=== PATIENT | male | born 1940 | race Caucasian/White ===

== ENCOUNTER → 2018-04-15 | Outpatient (CLI) | payer MEDICARE, BC ==
[2017-04-21 09:06] VITALS: BMI 26.4
[~2018-04-15] MED LIST: ACET-3017 PO; BUDE3CAP6 PO; CELE-1 PO; CLAR-1 PO; FAMO-67 PO; INSU100C10 SQ; INSU100I30 SUBQ; LANI SUBQ; LOSA25TA50 PO; LOSA50TA72 PO; MESA0.374 PO; METR-160 PO; NOVOLOG SUBQ; ONDA4TAB PO; PANT40TA65 PO; PRE5 PO; PRED-1 PO; PRED-416 PO; PRED20TA6 PO
--- NOTE | 2018-04-15 15:37 | RADIOLOGY IMAGING REPORT ---
FACILITY: [facility] PATIENT NAME: Montana Carl : 1940 MR: [id number] V: [id number] EXAM DATE: [id number] ORDERING PHYSICIAN: LUIZ BAILEY TECHNOLOGIST: Location: [facility] - [place] Patient: Montana Carl : 1940 Visit/Account:[id number] Date of Sevice: 04/15/2018 Exam type: PELVIS History: Bilateral hip pain Comparison: KUB May 05, 2017. Findings: No significant arthritic change identified at the hip joints. There is no evidence of acute fracture s involving the pelvis. No lytic or blastic bone lesions are seen. Calcified lupus are noted in the pelvis. There are moderate spondylotic changes in the visualized lower lumbar spine IMPRESSION: 1. Moderate spondylotic changes lower lumbar spine Report Dictated By: Andreia Monroe MD at 04/15/2018 3:31 PM Report E-Signed By: Andreia Monroe MD at 04/15/2018 3:34 PM WSN:[email or web address]
== END ==
LOC: RAD 15:02
PROVIDERS: ATTEND Family Medicine
DX: M47.896 Other spondylosis, lumbar region (principal)
CPT/HCPCS: 72170

== ENCOUNTER → 2018-06-14 | Outpatient (CLI) | payer MEDICARE, BC ==
[2017-04-21 09:06] VITALS: BMI 26.4
[~2018-06-14] MED LIST changes: +ADAL40PE4 SQ; +INSU100I10 SQ; +LOSA100T69 PO; -LOSA25TA50 PO; +LOSA25TA52 PO; -LOSA50TA72 PO; +LOSA50TA74 PO
== END ==
LOC: LAB 12:16
PROVIDERS: ATTEND Family Medicine
DX: I10 Essential (primary) hypertension (principal)
CPT/HCPCS: 36415; 82310; 82374; 82435; 82565; 82947; 84132; 84295; 84520

== ENCOUNTER → 2019-01-06 | Outpatient (CLI) | payer MEDICARE, BC ==
[2017-04-21 09:06] VITALS: BMI 26.4
[~2019-01-06] MED LIST changes: -LOSA100T69 PO; +LOSA100T75 PO; -LOSA25TA52 PO; +LOSA25TA57 PO; -LOSA50TA74 PO; +LOSA50TA80 PO; -METR-160 PO; +METR500T15 PO
[2019-01-06 14:54] LABS: PLATELET COUNT, AUTOMATED 350 K/uL (150-450)
== END ==
LOC: LAB 14:28
PROVIDERS: ATTEND Internal Medicine Gastroenterology
DX: K51.20 Ulcerative (chronic) proctitis without complications (principal); R19.7 Diarrhea, unspecified; K92.1 Melena
CPT/HCPCS: 36415; 82040; 82247; 82310; 82374; 82435; 82565; 82947; 84075; 84132; 84155; 84295; 84450; 84460; 84520; 85025; 87324; 87449

== ENCOUNTER → 2019-01-17 | Outpatient (CLI) | payer MEDICARE, BC ==
[2017-04-21 09:06] VITALS: BMI 26.4
== END ==
LOC: LAB 09:36
PROVIDERS: ATTEND Internal Medicine Gastroenterology
DX: K51.30 Ulcerative (chronic) rectosigmoiditis without complications (principal); R19.7 Diarrhea, unspecified
CPT/HCPCS: 36415; 83993; 84443

== ENCOUNTER → 2019-01-27 | Outpatient (CLI) | payer MEDICARE, BC ==
[2017-04-21 09:06] VITALS: BMI 26.4
[~2019-01-27] MED LIST changes: +ACET650T40 PO; +INSU100I30 SQ; +TRIA15CR40 TP
--- NOTE | 2019-01-27 15:27 | RADIOLOGY IMAGING REPORT ---
FACILITY: [facility] PATIENT NAME: Montana Carl : 1940 MR: [id number] V: [id number] EXAM DATE: ORDERING PHYSICIAN: STACEY HERNANDEZ TECHNOLOGIST: Location: [facility] Patient: Montana Carl : 1940 Visit/Account:[id number] Date of Sevice: 01/27/2019 MRI right shoulder Indication: Right shoulder pain. Osteoarthritis. Comparison: None available. Technique: Multiplanar multisequence MR images were obtained through the right shoulder. Findings: Rotator cuff: High-grade undersurface tearing distal supraspinatus. Minimal undersurface tearing distal infraspinatus fibers. Teres minor is intact, and unremarkable. There is tendinopathy and mild partial tearing the superior fibers of the subscapularis. Biceps tendon: Moderate tendinopathy intra-articular portion biceps tendon. Mild medial subluxation biceps tendon from the superior bicipital groove. AC joint and acromion: There are no significant acromioclavicular degenerative changes. Labrum and capsular ligaments: Dear circumferential complex degenerative labral tearing noted with slight posterior displacement of the complex irregular tearing of the posterior labrum with no significant para labral cyst. Capsular ligaments are intact with no evidence of focal abnormality. Bones and cartilage: No acute fracture-dislocation. High-grade chondral loss of the glenohumeral joint cartilage with subc hondral cystic changes noted and minimal subchondral sclerosis as well. . Scratch that no acute osseous abnormality. Effusion, bursitis: Mild to moderate sized likely reactive effusion glenohumeral joint. Moderate amount of fluid seen within subacromial/subdeltoid bursa. IMPRESSION: 1. High-grade tearing distal supraspinatus. 2. Moderate subacromial/subcutaneous bursitis. 3. Moderate to severe osteoarthritic changes glenohumeral joint with near circumferential degenerativ e labral tearing. Report Dictated By: Mando Puentes MD at 01/27/2019 3:18 PM Report E-Signed By: Mando Puentes MD at 01/27/2019 3:22 PM WSN:[id number]
== END ==
LOC: MRI 01:29
PROVIDERS: ATTEND Family Medicine Sports Medicine
DX: M19.011 Primary osteoarthritis, right shoulder (principal); S46.811A Strain of other muscles, fascia and tendons at shoulder and upper arm level, right arm, initial encounter; M75.51 Bursitis of right shoulder

== ENCOUNTER → 2019-03-04 | Outpatient (CLI) | payer MEDICARE, BC ==
[2017-04-21 09:06] VITALS: BMI 26.4
[~2019-03-04] MED LIST changes: +VEDO300V
[2019-03-04 17:45] LABS: PLATELET COUNT, AUTOMATED 414 K/uL (150-450)
== END ==
LOC: LAB 16:39
PROVIDERS: ATTEND Internal Medicine Gastroenterology
DX: K51.30 Ulcerative (chronic) rectosigmoiditis without complications (principal); K52.1 Toxic gastroenteritis and colitis; R68.83 Chills (without fever); R10.9 Unspecified abdominal pain
CPT/HCPCS: 36415; 82040; 82247; 82248; 82310; 82374; 82435; 82565; 82947; 83993; 84075; 84132; 84155; 84295; 84450; 84460; 84520; 85025; 87324; 87449

== ENCOUNTER → 2019-03-05 | Outpatient (REF) | payer MEDICARE, BC ==
[2017-04-21 09:06] VITALS: BMI 26.4
== END ==
LOC: ZZSENDIN 12:18
PROVIDERS: ATTEND Internal Medicine Gastroenterology
DX: K51.30 Ulcerative (chronic) rectosigmoiditis without complications (principal); K52.1 Toxic gastroenteritis and colitis; R68.83 Chills (without fever); R10.9 Unspecified abdominal pain

== ENCOUNTER 2019-03-07 08:48 | Emergency (ER) | payer MEDICARE, BC ==
[2017-04-21 09:06] VITALS: Wt 80.7 kg
[~2019-03-07 08:48] MED LIST changes: -VEDO300V
--- NOTE | 2019-03-07 08:59 | ER Report ---
History and Physical Time Seen By MD: 08:56 HPI/ROS CHIEF COMPLAINT: Abdominal pain jaundice HISTORY OF PRESENT ILLNESS: 79-year-old male history of colitis on IV medication for colitis last month to month and a half he's been having episodic abdominal discomfort Kirill localized to the epigastrium no radiation comes and goes treating it as potentially a gastritis patient has worsening pain when he lays flat on his back a lot of burping a lot a reflux however in the last couple days he noticed some anicteric sclera and some jaundice unclear one of the side effects reportedly from the medication is being infused his liver issues liver dysfunction patient has no history of liver issues no history of hepatitis or IV drug use. Patient denies chest pain at this time but the pain is localized to the epigastrium. Patient denies nausea vomiting diarrhea fever chills REVIEW OF SYSTEMS: Respiratory: No cough, no dyspnea. Cardiovascular: No chest pain, no palpitations. Gastrointestinal: Epigastric abdominal pain with jaundice Musculoskeletal: No back pain. Remainder of the 14 system rev: Yes Allergies: Coded Allergies: mesalamine (Verified Allergy, Intermediate, cramps, 05/28/17) Sulfa (Sulfonamide Antibiotics) (Unverified Allergy, Unknown, 03/07/19) glipizide (Unverified Allergy, Unknown, Boils, 06/14/18) Home Meds Reported Medications Vedolizumab (Entyvio) 300 Mg Vial 03/07/19 Acetaminophen (ACETAMINOPHEN) 650 Mg Tablet.er, 1 TAB PO BID, TAB 01/24/19 Losartan Potassium (LOSARTAN POTASSIUM) 100 Mg Tablet, 0.5 TAB PO QDAY 06/14/18 Discontinued Reported Medications Triamcinolone Acetonide 0.1% Cr 15 Gm Tube (TRIAMCINOLONE ACETONIDE 0.1% CREAM) 15 Gm Cream..g., 1 ARI TP BID PRN for RASH, TUBE 01/25/19 Insulin Glargine 100 Un/Ml Pen (LANTUS SOLOSTAR PEN) 100 Unit/1 Ml Insuln.pen, 10 UNIT SQ DAILY, PEN 01/24/19 Discontinued Scripts Adalimumab (HUMIRA) 40 Mg/0.8 Ml Pen.ij.kit, 40 MG SQ QDAY for 90 Days, #2 BOX Prov:LIDYA BLACK MD 06/14/18 Reviewed Nurses Notes: Yes Old Medical Records Reviewed: Yes Hx Smoking: Yes (50 YEARS AGO) Smoking Status: Never Smoker, Former Smoker Hx Substance Use Disorder: No Hx Alcohol Use: No Constitutional Vital Sign - Last 24 Hours 03/07/19 03/07/19 03/07/19 03/07/19 08:55 09:00 09:30 10:00 Temp 97.8 Pulse 53 50 46 48 Resp 16 14 17 B/P (MAP) 127/66 114/91 (99) 116/61 (79) Pulse Ox 91 90 93 95 03/07/19 03/07/19 03/07/19 03/07/19 10:30 11:00 11:30 12:00 Pulse 47 47 48 47 Resp 10 19 11 B/P (MAP) 131/65 (87) 120/51 (74) 136/63 (87) 136/68 (90) Pulse Ox 96 96 94 95 03/07/19 12:30 Pulse 47 Resp 13 B/P (MAP) 127/66 (86) Pulse Ox 95 Physical Exam General Appearance: The patient is alert, has no immediate need for airway protection and no current signs of toxicity. [ ] Eyes: Pupils equal and round no injection. Icteric sclera Respiratory: Chest is non tender, lungs are clear to auscultation. Cardiac: regular rate and rhythm [ ] Gastrointestinal: Mild tenderness to palpation epigastrium otherwise unremarkable Musculoskeletal: Neck: Neck is supple and non tender. Extremities have full range of motion and are non tender. Skin: Yellow colored hue to the skin consistent with jaundice and icteric sclera also noticed [ ] DIFFERENTIAL DIAGNOSIS: After history and physical exam differential diagnosis was considered for liver disorder liver dysfunction pancreatitis gallstone pancreatitis colitis allergic drug reaction drug reaction causing liver dysfunction Medical Decision Making Data Points Result Diagram: 03/07/1989903/07/19 0900 Laboratory Hematology Test 03/07/19 09:00 03/07/19 09:42 Red Blood Count 4.35 M/uL (4.00-5.60) Mean Corpuscular Volume 92.2 fL (80.0-96.0) Mean Corpuscular Hemoglobin 30.8 pg (26.0-33.0) Mean Corpuscular Hemoglobin Concent 33.4 g/dL (32.0-36.0) Red Cell Distribution Width 13.7 % (11.5-14.5) Mean Platelet Volume 8.1 fL (7.2-11.1) Neutrophils (%) (Auto) 68.1 % (39.4-72.5) Lymphocytes (%) (Auto) 13.8 % (17.6-49.6) Monocytes (%) (Auto) 10.9 % (4.1-12.4) Eosinophils (%) (Auto) 5.8 % (0.4-6.7) Basophils (%) (Auto) 1.4 % (0.3-1.4) Nucleated RBC Relative Count (auto) 0.0 /100WBC Neutrophils # (Auto) 5.1 K/uL (2.0-7.4) Lymphocytes # (Auto) 1.0 K/uL (1.3-3.6) Monocytes # (Auto) 0.8 K/uL (0.3-1.0) Eosinophils # (Auto) 0.4 K/uL (0.0-0.5) Basophils # (Auto) 0.1 K/uL (0.0-0.1) Nucleated RBC Absolute Count (auto) 0.00 K/uL Prothrombin Time 13.0 seconds (12.0-14.4) Prothromb Time International Ratio 0.98 Activated Partial Thromboplast Time 32 seconds (23-35) D-Dimer Quantitative (PE/DVT) 0.79 ug/ml (0-0.50) Sodium Level 139 mmol/L (137-145) Potassium Level 3.9 mmol/L (3.5-5.0) Chloride Level 104 mmol/L (98-107) Carbon Dioxide Level 24 mmol/L (22-30) Blood Urea Nitrogen 19 mg/dl (9-21) Creatinine 1.70 mg/dl (0.66-1.25) Glomerular Filtration Rate Calc 39.3 Random Glucose 120 mg/dl (75-110) Calcium Level 9.5 mg/dl (8.4-10.2) Total Bilirubin 5.5 mg/dl (0.2-1.3) Aspartate Amino Transf (AST/SGOT) 202 U/L (0-35) Alanine Aminotransferase (ALT/SGPT) 376 U/L (0-56) Alkaline Phosphatase 396 U/L (0-126) Troponin I < 0.012 ng/ml Total Protein 6.8 g/dl (6.3-8.2) Albumin 3.7 g/dl (3.5-5.0) Lipase 94 U/L (23-300) Serum Alcohol < 10 mg/dl Urine Color Paty Urine Clarity Clear Urine pH 5.0 pH (4.8-9.5) Urine Specific Lee 1.023 Urine Protein Negative mg/dL (NEGATIVE) Urine Glucose (UA) Negative mg/dL (NEGATIVE) Urine Ketones 20 mg/dL (NEGATIVE) Urine Blood Negative (NEGATIVE) Urine Nitrite Negative (NEGATIVE) Urine Bilirubin Moderate (NEGATIVE) Urine Urobilinogen 4.0 mg/dL (0.2-1.9) Urine Leukocyte Esterase Negative (NEGATIVE) Urine RBC 1 /HPF (0-2/HPF) Urine WBC 8 /HPF (0-5/HPF) Urine Squamous Epithelial Cells None /LPF (</=FEW) Urine Bacteria Negative /HPF (NONE-FEW) Urine Hyaline Casts Few /LPF (NONE-FEW) Urine Mucus Few /HPF (NONE-FEW) Chemistry Test 03/07/19 09:00 03/07/19 09:42 White Blood Count 7.5 k/uL (4.5-11.0) Red Blood Count 4.35 M/uL (4.00-5.60) Hemoglobin 13.4 g/dL (14.0-18.0) Hematocrit 40.1 % (42.0-52.0) Mean Corpuscular Volume 92.2 fL (80.0-96.0) Mean Corpuscular Hemoglobin 30.8 pg (26.0-33.0) Mean Corpuscular Hemoglobin Concent 33.4 g/dL (32.0-36.0) Red Cell Distribution Width 13.7 % (11.5-14.5) Platelet Count 395 K/uL (150-450) Mean Platelet Volume 8.1 fL (7.2-11.1) Neutrophils (%) (Auto) 68.1 % (39.4-72.5) Lymphocytes (%) (Auto) 13.8 % (17.6-49.6) Monocytes (%) (Auto) 10.9 % (4.1-12.4) Eosinophils (%) (Auto) 5.8 % (0.4-6.7) Basophils (%) (Auto) 1.4 % (0.3-1.4) Nucleated RBC Relative Count (auto) 0.0 /100WBC Neutrophils # (Auto) 5.1 K/uL (2.0-7.4) Lymphocytes # (Auto) 1.0 K/uL (1.3-3.6) Monocytes # (Auto) 0.8 K/uL (0.3-1.0) Eosinophils # (Auto) 0.4 K/uL (0.0-0.5) Basophils # (Auto) 0.1 K/uL (0.0-0.1) Nucleated RBC Absolute Count (auto) 0.00 K/uL Prothrombin Time 13.0 seconds (12.0-14.4) Prothromb Time International Ratio 0.98 Activated Partial Thromboplast Time 32 seconds (23-35) D-Dimer Quantitative (PE/DVT) 0.79 ug/ml (0-0.50) Glomerular Filtration Rate Calc 39.3 Calcium Level 9.5 mg/dl (8.4-10.2) Total Bilirubin 5.5 mg/dl (0.2-1.3) Aspartate Amino Transf (AST/SGOT) 202 U/L (0-35) Alanine Aminotransferase (ALT/SGPT) 376 U/L (0-56) Alkaline Phosphatase 396 U/L (0-126) Troponin I < 0.012 ng/ml Total Protein 6.8 g/dl (6.3-8.2) Albumin 3.7 g/dl (3.5-5.0) Lipase 94 U/L (23-300) Serum Alcohol < 10 mg/dl Urine Color Paty Urine Clarity Clear Urine pH 5.0 pH (4.8-9.5) Urine Specific Lee 1.023 Urine Protein Negative mg/dL (NEGATIVE) Urine Glucose (UA) Negative mg/dL (NEGATIVE) Urine Ketones 20 mg/dL (NEGATIVE) Urine Blood Negative (NEGATIVE) Urine Nitrite Negative (NEGATIVE) Urine Bilirubin Moderate (NEGATIVE) Urine Urobilinogen 4.0 mg/dL (0.2-1.9) Urine Leukocyte Esterase Negative (NEGATIVE) Urine RBC 1 /HPF (0-2/HPF) Urine WBC 8 /HPF (0-5/HPF) Urine Squamous Epithelial Cells None /LPF (</=FEW) Urine Bacteria Negative /HPF (NONE-FEW) Urine Hyaline Casts Few /LPF (NONE-FEW) Urine Mucus Few /HPF (NONE-FEW) Coagulation Test 03/07/19 09:00 Prothrombin Time 13.0 seconds Prothromb Time International Ratio 0.98 Activated Partial Thromboplast Time 32 seconds D-Dimer Quantitative (PE/DVT) 0.79 ug/ml Toxicology Test 03/07/19 09:00 Serum Alcohol < 10 mg/dl Urinalysis Test 03/07/19 09:42 Urine Color Paty Urine Clarity Clear Urine pH 5.0 pH (4.8-9.5) Urine Specific Lee 1.023 Urine Protein Negative mg/dL (NEGATIVE) Urine Glucose (UA) Negative mg/dL (NEGATIVE) Urine Ketones 20 mg/dL (NEGATIVE) Urine Blood Negative (NEGATIVE) Urine Nitrite Negative (NEGATIVE) Urine Bilirubin Moderate (NEGATIVE) Urine Urobilinogen 4.0 mg/dL (0.2-1.9) Urine Leukocyte Esterase Negative (NEGATIVE) Urine RBC 1 /HPF (0-2/HPF) Urine WBC 8 /HPF (0-5/HPF) Urine Squamous Epithelial Cells None /LPF (</=FEW) Urine Bacteria Negative /HPF (NONE-FEW) Urine Hyaline Casts Few /LPF (NONE-FEW) Urine Mucus Few /HPF (NONE-FEW) ED Course/Re-evaluation ED Course ED course 79-year-old male comes emergency room today obvious jaundice icteric sclera bilirubin of 5.5 elevated LFTs and the 2 and 300 range initial CAT scan showed dilation of the common bile duct and thickening of the gallbladder concerning for cholecystitis follow-up ultrasound shows a large amount of sludge talked to general surgery is recommending ERCP and transfer to higher level care for definitive treatment and follow-up patient be transferred to [facility] diagnosis: The Decision to Disposition Date: Mar 07, 2019 Decision to Disposition Time: 12:57 Depart Departure Latest Vital Signs Vital Signs Date Time Temp Pulse Resp B/P (MAP) Pulse Ox O2 Delivery O2 Flow Rate FiO2 03/07/19 12:30 47 13 127/66 (86) 95 03/07/19 08:55 97.8 Impression: Primary Impression: Cholecystitis Condition: Improved Disposition: [facility] Referrals: LIDYA BLACK MD (PCP) KYLE SUAREZ MD Mar 07, 2019 08:59
[2019-03-07] MEDS ORDERED: ONDANSETRON 4 MG/2 ML VIAL IVP ONE (09:00)
[2019-03-07] MEDS ORDERED: VEDO300V (09:01)
[2019-03-07] MEDS ORDERED: IOPAMIDOL 76% 100 ML INFUS BTL 0 ML ONE (09:08)
[2019-03-07 09:11] LABS: PLATELET COUNT, AUTOMATED 395 K/uL (150-450)
--- NOTE | 2019-03-07 09:20 | EKG ---
FACILITY: [facility] PATIENT NAME: SUKHDEV MIR : [id number] MR: [id number] V: [id number] EXAM DATE: ORDERING PHYSICIAN: KYLE SUAREZ TECHNOLOGIST: BRIAN Test Reason : CP Blood Pressure : / mmHG Vent. Rate : 053 BPM Atrial Rate : 053 BPM P-R Int : 166 ms QRS Dur : 088 ms QT Int : 440 ms P-R-T Axes : 023 -28 018 degrees QTc Int : 412 ms Sinus bradycardia Possible left atrial enlargement Left axis No acute appearing findings Confirmed by DELICIA TEMPLETON ([id number]) on 03/07/2019 4:12:46 PM Referred By: DANIELA Confirmed By:DELICIA TEMPLETON
[2019-03-07 09:27] LABS: INR 0.98
[2019-03-07] MEDS ORDERED: NS(*) 0.9% 1000 ML BAG 1,000 ML IV ONE (09:35)
--- NOTE | 2019-03-07 10:05 | RADIOLOGY IMAGING REPORT ---
FACILITY: [facility] PATIENT NAME: Montana Carl : 1940 MR: [id number] V: [id number] EXAM DATE: ORDERING PHYSICIAN: KYLE SUAREZ TECHNOLOGIST: Location: [facility] Patient: Montana Carl : 1940 Visit/Account:[id number] Date of Sevice: 03/07/2019 Technique: CHEST PA LAT HISTORY: Ulcerative colitis Comparison studies: April 21, 2017 FINDINGS: No acute airspace consolidation. No pleural effusion. Minimal left basilar atelectasis is present. There is pulmonary hyperexpansion. Cardiomediastinal silhouette is unchanged. IMPRESSION: 1. No acute cardiopulmonary process. Report Dictated By: Lamont Rios DO at 03/07/2019 9:57 AM Report E-Signed By: Lamont Rios DO at 03/07/2019 9:59 AM WSN:[id number]
[2019-03-07] MEDS ORDERED: NS(*) 0.9% 50 ML BAG 0 ML ONE (10:30)
[2019-03-07] MEDS ORDERED: IOPAMIDOL 76% 100 ML INFUS BTL 100 ML ONE (10:30)
--- NOTE | 2019-03-07 10:35 | RADIOLOGY IMAGING REPORT ---
FACILITY: [facility] [place] PATIENT NAME: Montana Carl : 1940 MR: [id number] V: [id number] EXAM DATE: ORDERING PHYSICIAN: KYLE SUAREZ TECHNOLOGIST: Location: [facility] [place] Patient: Montana Carl : 1940 Visit/Account:[id number] Date of Sevice: 03/07/2019 EXAMINATION: CT Abdomen and Pelvis With Contrast 03/07/2019 8:56 AM HISTORY: pain TECHNIQUE: Spiral scan was through the abdomen and pelvis during injection of nonionic iodinated in travenous contrast. Contrast: 75 mL of IV Isovue 370. One of the following dose optimization techniques was utilized in the performance of this exam: Autom ated exposure control; adjustment of the mA and/or kV according to the patient's size; or use of an i terative reconstruction technique. Specific details can be referenced in the facility's radiology C T exam operational policy. COMPARISON STUDIES: 05/28/2017. FINDINGS: Liver / biliary: Intra and extrahepatic biliary dilatation is new with the CBD measuring over 1 cm in the pancreatic head. This tapers fairly smoothly towards the ampulla. No cholelithiasis defined by CT. There is thickening of the gallbladder wall particularly towards the fundus with minimal fluid between the liver and the gallbladder. No focal liver lesion. Pancreas: Pancreas enhances well. No peripancreatic inflammation. Duct is not dilated. Spleen: negative Adrenal glands: negative Kidneys / retroperitoneum: Symmetric and normal enhancement. No stone or obstruction. Small bilater al benign-appearing renal cortical cysts. Pelvic structures: Prostate is prominent. Bladder contours are unremarkable. Bowel / peritoneum / mesenteries: Stomach and small bowel are unremarkable in appearance. Mildly thi ckened appearance of the lower descending colon through the sigmoid although this is less evident on the previous. The transverse colon and splenic flexure do not have a thickened and inflamed appearan ce of the prior. Diverticulosis of the distal colon without acute focal diverticular inflammation. No perforation, fistula, or abscess. Vessels: Atherosclerosis. Incidental circumaortic left renal vein with a small retroaortic component . Musculoskeletal / Body wall: Degenerative changes in the spine. Small bilateral fatty inguinal herni as. Lymph node assessment: negative Lower chest: Mild atelectasis or scarring in the bases. Of note with respect to the clinical concern for potential PE, basilar pulmonary arteries appear to enhance well without visible thrombus althoug h this was not an optimized CTA PE technique. IMPRESSION: 1. Biliary dilatation which is new and abnormal appearance of the gallbladder concerning for cholecy stitis. No defined obstructing cholelithiasis. 2. Mildly thickened distal colon less so than in 2017. This may be chronic changes related to the p atient's history of ulcerative colitis although acute exacerbation would be possible. I called report to KYLE SUAREZ at 03/07/2019 10:22 AM. There was a pending order for CTA for PE b ut given the potential biliary findings to account for pain, gallbladder ultrasound will be performed and the CTA for PE may be deferred. Report Dictated By: Adair Polk MD at 03/07/2019 10:13 AM Report E-Signed By: Adair Polk MD at 03/07/2019 10:31 AM WSN:[email or web address]
--- NOTE | 2019-03-07 11:52 | RADIOLOGY IMAGING REPORT ---
FACILITY: [facility] [place] PATIENT NAME: Montana Carl : 1940 MR: [id number] V: [id number] EXAM DATE: ORDERING PHYSICIAN: KYLE SUAREZ TECHNOLOGIST: Location: [facility] Patient: Montana Carl : 1940 Visit/Account:[id number] Date of Sevice: 03/07/2019 GALLBLADDER COMPARISON: CT abdomen with IV contrast earlier today. HISTORY: pain TECHNIQUE: Alejo scale ultrasound of the right upper quadrant was performed. FINDINGS: LIVER: Normal size, 15.9 cm craniocaudally. Normal morphology. Normal homogeneous echotexture.Nor mal homogeneous echotexture. No appreciable masses. There is hepatopedal flow in the main portal ve in as expected. GALLBLADDER: Normal size. There are no shadowing gallstones however there is a nonshadowing echogeni c filling defect measuring about 1.3 x 3.5 cm is most consistent with sludge ball. Additional nonshad owing echogenic foci along the wall of the gallbladder system with polyps, largest measuring 2 x 5 mm on image 33. There is no wall thickening or pericholecystic fluid. The sonographic Beltrán's sign was reportedly negative. BILE DUCTS: No intrahepatic or extrahepatic bile duct dilatation by ultrasound although the common d uct and intrahepatic bile ducts were clearly dilated on a study performed about one hour prior to thi s study. Common bile duct measures 2 millimeters by ultrasound but it measured about [address] PANCREAS: Normal ultrasound appearance. RIGHT KIDNEY: Normal appearance, 10.2 cm bipolar length with normal cortical medullary differentiati on. No shadowing stone, perinephric fluid or mass. OTHER: Negative. IMPRESSION: 1. 3.5 cm sludge ball and small gallbladder polyps (largest polyp measuring 2 x 5 mm). Otherwise nor mal appearance of the gallbladder without sonographic evidence of cholecystitis. Beltrán's sign was ne gative. 2. Although there is no appreciable bile duct dilatation by ultrasound, there was clearly mild intra and extrahepatic bile duct dilatation on a CT performed earlier this morning. Report Dictated By: Rayo Duong at 03/07/2019 11:38 AM Report E-Signed By: Rayo Duong at 03/07/2019 11:47 AM WSN:[id number]
--- NOTE | 2019-03-07 12:12 | EKG ---
FACILITY: [facility] [place] PATIENT NAME: SUKHDEV MIR : [id number] MR: [id number] V: [id number] EXAM DATE: ORDERING PHYSICIAN: KYLE SUAREZ TECHNOLOGIST: SUKHWINDER Valdez Reason : CP Blood Pressure : / mmHG Vent. Rate : 047 BPM Atrial Rate : 047 BPM P-R Int : 170 ms QRS Dur : 090 ms QT Int : 466 ms P-R-T Axes : 031 -24 011 degrees QTc Int : 412 ms Sinus bradycardia with PAC Left axis Abnormal ECG When compared with ECG of 07-MAR-2019 08:52, No significant change was found Confirmed by DELICIA TEMPLETON ([id number]) on 03/07/2019 4:15:58 PM Referred By: DANIELA Confirmed By:DELICIA TEMPLETON
[2019-03-07] MEDS ORDERED: PIPERACILLIN/TAZO*3.375GM VIAL 3.375 GM in NS(*) 0.9% 100 ML MINI-BAG 100 ML IVPB ONE (12:50)
[2019-03-07] MEDS ORDERED: MORPHINE 4 MG/ML SDV IVP ONE (13:20)
[2019-03-07 14:00] VITALS: BP 129/60
== END 2019-03-07 15:30 | disposition short-term general hospital (02) ==
LOC: ER 09:04
DX: K81.9 Cholecystitis, unspecified (principal)
CPT/HCPCS: 71046; 74177; 76705; 81001; 83690; 84484; 85025; 85379; 85610; 85730; 93005; 96361; 96365; 96375; 99285; G0480; J2270; J2405; J2543; J7030; Q9967; 80320; 82040; 82247; 82310; 82374; 82435; 82565; 82947; 84075; 84132; 84155; 84295; 84450; 84460; 84520; 99284; J7050

== ENCOUNTER → 2019-03-07 | Outpatient (CLI) | payer MEDICARE, BC ==
[2017-04-21 09:06] VITALS: BMI 26.4
== END ==
LOC: AMB 15:32
PROVIDERS: ATTEND Nurse Practitioner
DX: R10.10 Upper abdominal pain, unspecified (principal)
CPT/HCPCS: A0425; A0426

== ENCOUNTER → 2019-03-16 | Outpatient (CLI) | payer MEDICARE, BC ==
[2017-04-21 09:06] VITALS: BMI 26.4
[~2019-03-16] MED LIST changes: +VEDO300V
[2019-03-16 09:09] LABS: PLATELET COUNT, AUTOMATED 349 K/uL (150-450)
== END ==
LOC: LAB 08:50
PROVIDERS: ATTEND Internal Medicine Gastroenterology
DX: K51.30 Ulcerative (chronic) rectosigmoiditis without complications (principal); R89.8 Other abnormal findings in specimens from other organs, systems and tissues
CPT/HCPCS: 36415; 82040; 82247; 82248; 82310; 82374; 82435; 82565; 82947; 83690; 84075; 84132; 84155; 84295; 84450; 84460; 84520; 85025

== ENCOUNTER 2019-03-17 12:56 | Outpatient (RCR) | payer MEDICARE, BC ==
[2017-04-21 09:06] VITALS: Wt 86.5 kg
[2019-02-02 13:04] VITALS: BP 130/86
[2019-02-02] MEDS: LIDOCAINE/SOD BICARB 8.4% SYR ID PRN (13:13)
[2019-02-02] MEDS: NS(*) 0.9% 100 ML BAG 100 ML IVPB PRN (13:13)
[2019-02-02 13:18] LABS: PLATELET COUNT, AUTOMATED 372 K/uL (150-450)
[2019-02-02] MEDS: ACETAMINOPHEN 325 MG TAB PO PRN (13:52)
[2019-02-02] MEDS: diphenhydrAMINE 25 MG CAP PO PRN (13:52)
[2019-02-02 15:08] VITALS: BP 135/77
[2019-02-16] MEDS: diphenhydrAMINE 25 MG CAP PO PRN (09:21)
[2019-02-16] MEDS: LIDOCAINE/SOD BICARB 8.4% SYR ID PRN (09:21)
[2019-02-16] MEDS: NS(*) 0.9% 100 ML BAG 100 ML IVPB PRN (09:25)
[2019-02-16 09:27] LABS: PLATELET COUNT, AUTOMATED 399 K/uL (150-450)
[2019-02-16 09:49] VITALS: BP 107/67
[2019-02-16 10:26] VITALS: BP 112/71
[~2019-03-17 12:56] MED LIST changes: +DEXTROSE 5%(*) 100 ML BAG 100 ML IVPB PRN; +VEDOLIZUMAB 300 MG VIAL 300 MG in NS(*) 0.9% 250 ML BAG 250 ML IVPB ONE
[2019-03-17 13:11] VITALS: BP 151/75
[2019-03-17] MEDS: ACETAMINOPHEN 325 MG TAB PO PRN (13:24)
[2019-03-17] MEDS: diphenhydrAMINE 25 MG CAP PO PRN (13:24)
[2019-03-17] MEDS: LIDOCAINE/SOD BICARB 8.4% SYR ID PRN (13:25)
[2019-03-17] MEDS: NS(*) 0.9% 100 ML BAG 100 ML IVPB PRN (13:45)
[2019-03-17] MEDS ORDERED: VEDOLIZUMAB 300 MG VIAL 300 MG in NS(*) 0.9% 250 ML BAG 250 ML IVPB ONE (14:00)
[2019-03-28] MEDS ORDERED: BUDE3CAP6 PO (10:49)
[2019-04-04] MEDS ORDERED: ACET-1718 PO (10:30)
[2019-04-26] MEDS ORDERED: LOSA100T75 PO (16:00)
== END 2019-05-02 ==
LOC: SPU 12:56
PROVIDERS: ATTEND Internal Medicine Gastroenterology
DX: K51.20 Ulcerative (chronic) proctitis without complications (principal)
CPT/HCPCS: 85025; 86140; 96365; A9270; J3380; J7050; Q0163; 82040; 82247; 82310; 82374; 82435; 82565; 82947; 84075; 84132; 84155; 84295; 84450; 84460; 84520

== ENCOUNTER → 2019-03-21 | Outpatient (CLI) | payer MEDICARE, BC ==
[2017-04-21 09:06] VITALS: BMI 26.4
[~2019-03-21] MED LIST changes: -DEXTROSE 5%(*) 100 ML BAG 100 ML IVPB PRN; -VEDOLIZUMAB 300 MG VIAL 300 MG in NS(*) 0.9% 250 ML BAG 250 ML IVPB ONE
[2019-03-21 14:59] LABS: PLATELET COUNT, AUTOMATED 392 K/uL (150-450)
== END ==
LOC: LAB 14:30
PROVIDERS: ATTEND Internal Medicine Gastroenterology
DX: K51.30 Ulcerative (chronic) rectosigmoiditis without complications (principal); R89.9 Unspecified abnormal finding in specimens from other organs, systems and tissues
CPT/HCPCS: 36415; 82040; 82247; 82248; 82310; 82374; 82435; 82565; 82947; 83690; 84075; 84132; 84155; 84295; 84450; 84460; 84520; 85007; 85027